=== PATIENT | male | born 1955 | race Caucasian/White ===

== ENCOUNTER 2018-06-22 13:57 | Outpatient (CLI) | payer BC, MEDICARE ==
[~2018-06-22 13:57] MED LIST: Iopamidol 370 76% 100 ML VIAL ONE
[2018-06-22 14:33] LABS: Estimated GFR-MDRD - POC Greater than 90
--- NOTE | 2018-06-22 15:40 | CT ---
CT NECK WITH CONTRAST: Date: 06-22-18 History: 63-year-old male with right neck mass. FINDINGS: There is a circumscribed, mildly lobular 4 x 1.5 x 2.5 cm solid mass with slightly heterogeneous enha ncement protruding inferiorly from the tail of the superficial lobe of the right parotid gland, exten ding inferiorly along the anterior surface of the right sternocleidomastoid muscle. There is no signi ficant cervical lymphadenopathy inferior to this. The supraglottic larynx and hypopharynx are dilated with air. The larynx is symmetrical between right and left side. Lung apices are grossly clear. The carotid, submandibular, parapharyngeal, perivertebral, retropharyngeal, casualty claims supervisor, posterior cervica l, and left parotid, spaces, are unremarkable. IMPRESSION: Solid mass protruding inferiorly from the tail of the right parotid gland: evidence for neoplasm, pro bably of parotid origin. The other, less likely possibility is a pathological, malignant lymph node. POS: [facility]
== END 2018-06-22 13:58 | disposition home or self-care (01) ==
LOC: BICCT 13:57
PROVIDERS: ATTEND Specialist
DX: R22.1 Localized swelling, mass and lump, neck (principal); D49.0 Neoplasm of unspecified behavior of digestive system
CPT/HCPCS: 70491; 82565; Q9967

== ENCOUNTER 2018-07-16 10:18 | Day surgery (SDC) | payer BC, MEDICARE ==
[2018-07-15 15:12] VITALS: BMI 36.6
[2018-07-16] MEDS ORDERED: Midazolam HCl 2 mg/2 ml Vial ONE (11:42)
[2018-07-16] MEDS ORDERED: Fentanyl 100 MCG/2 ML VIAL ONE (11:42)
[2018-07-16] MEDS ORDERED: Bacitracin Zinc Ointment 30 gm TUBE ONE (12:20)
[2018-07-16] MEDS ORDERED: Lidocaine 1% w/Epinephrine 1:100K 20 ML VIAL ONE (12:20)
[2018-07-16] MEDS ORDERED: Morphine 2 MG/ML SYRINGE ONE (14:17)
--- NOTE | 2018-07-16 15:01 | OP ---
DATE OF PROCEDURE: 07/16/2018 PREOPERATIVE DIAGNOSIS: Right parotid mass. POSTOPERATIVE DIAGNOSIS: Right parotid mass. PROCEDURE PERFORMED: Right superficial parotidectomy with facial nerve dissection. DESCRIPTION OF PROCEDURE: After consent was obtained, the patient was identified and brought to the OR, placed on the operating room table in the supine position. General endotracheal anesthesia was obtained, the patient was positioned for parotid surgery. The facial nerve monitor was placed, and electrodes were placed and documented to be functioning well. We then prepped and draped the patient and positioned for surgery. An incision was made in the preauricular area and 2 fingerbreadths below the angle of the jaw and natural skin crease. We then extended the incision down to the skin to the level of the SMAS and platysma muscle. An anterior skin flap was elevated and secured to the skin. We then dissected along the anterior aspect of sternocleidomastoid and between the parotid fascia and identified the facial nerve trunk and its branches at the level of the pointer cartilage into digastric muscle. Once those were isolated, we turned our attention to the tail of the parotid and meticulously dissected the tail of the parotid with the associated tumor and sent that for frozen section. Hemostasis was obtained with surgical clips and suture ligation and bipolar cautery. The specimen was sent off for fresh frozen analysis, and the wound was closed in layers and SMAS being reapproximated to the anterior sternocleidomastoid fascia with absorbable suture. Fibrillar and Surgicel were placed in deep aspect of the wound and superficially between the skin flap and the parotid. We then reapproximated the skin with Monocryl for the deep levels in dermis and 6-0 Prolene for the skin. Sterile dressing was applied. The patient was awakened, taken to recovery room in stable condition prior to discharge home. Job ID: [id number]
== END 2018-07-16 15:29 | disposition home or self-care (01) ==
LOC: SDC 10:18
PROVIDERS: ATTEND Specialist
PROC: 00BM0ZZ Excision of Facial Nerve, Open Approach (ICD-10-PCS; principal; 2018-07-16)
PROC: 0CB80ZZ Excision of Right Parotid Gland, Open Approach (ICD-10-PCS; principal; 2018-07-16)
DX: D11.0 Benign neoplasm of parotid gland (principal); E11.9 Type 2 diabetes mellitus without complications; E78.5 Hyperlipidemia, unspecified; E66.01 Morbid (severe) obesity due to excess calories; F32.9 Major depressive disorder, single episode, unspecified; Z88.0 Allergy status to penicillin; Z79.84 Long term (current) use of oral hypoglycemic drugs; Z79.899 Other long term (current) drug therapy; Z98.890 Other specified postprocedural states
CPT/HCPCS: 88184; 88307; 93005; 93010; J2001; J2250; J2270; J3010

== ENCOUNTER 2022-05-06 08:17 | Outpatient (CLI) | payer BC, MEDICARE | END 2022-05-06 08:18 | disposition home or self-care (01) | LOC: MRI 08:17 | PROVIDERS: ATTEND Family Medicine | DX: M47.22 Other spondylosis with radiculopathy, cervical region (principal); M50.11 Cervical disc disorder with radiculopathy, high cervical region; M50.121 Cervical disc disorder at C4-C5 level with radiculopathy; M50.123 Cervical disc disorder at C6-C7 level with radiculopathy; M48.02 Spinal stenosis, cervical region; M25.78 Osteophyte, vertebrae; G95.89 Other specified diseases of spinal cord | CPT/HCPCS: 72141 ==

== ENCOUNTER 2022-07-18 09:39 | Outpatient (CLI) | payer BC, MEDICARE | END 2022-07-18 09:40 | disposition home or self-care (01) | LOC: BICRAD 09:39 | PROVIDERS: ATTEND Family Medicine | DX: M25.511 Pain in right shoulder (principal) ==

== ENCOUNTER 2022-11-12 12:49 | Outpatient (CLI) | payer MEDICARE | END 2022-11-12 12:50 | disposition home or self-care (01) | LOC: BICCT 12:49 | PROVIDERS: ATTEND Family Medicine | DX: Z12.2 Encounter for screening for malignant neoplasm of respiratory organs (principal); F17.210 Nicotine dependence, cigarettes, uncomplicated; N28.89 Other specified disorders of kidney and ureter | CPT/HCPCS: 71271 ==

== ENCOUNTER 2025-01-18 08:48 | Outpatient (CLI) | payer MEDICARE | END 2025-01-18 08:49 | disposition home or self-care (01) | LOC: CT 08:48 | PROVIDERS: ATTEND Family Medicine | DX: Z12.2 Encounter for screening for malignant neoplasm of respiratory organs (principal); N28.1 Cyst of kidney, acquired; K76.89 Other specified diseases of liver; F17.210 Nicotine dependence, cigarettes, uncomplicated | CPT/HCPCS: 71271; 76700 ==

== ENCOUNTER 2025-02-23 09:50 | Outpatient (CLI) | payer MEDICARE | END 2025-02-23 09:51 | disposition home or self-care (01) | LOC: BICRAD 09:50 | PROVIDERS: ATTEND Anesthesiology Pain Medicine | DX: M54.16 Radiculopathy, lumbar region (principal); M41.9 Scoliosis, unspecified; M47.816 Spondylosis without myelopathy or radiculopathy, lumbar region; M47.817 Spondylosis without myelopathy or radiculopathy, lumbosacral region | CPT/HCPCS: 72100 ==